=== PATIENT | female | born 1960 | race Caucasian/White ===

== ENCOUNTER 2018-07-26 14:25 | Observation (INO) ==
[2018-07-26] MEDS ORDERED: Bisacodyl 10 MG Supp RECTAL PRN (17:32)
[2018-07-26] MEDS ORDERED: Acetaminophen 325 MG Tablet PO PRN (17:32)
[2018-07-26] MEDS: Senna/Docusate Sodium 8.6/50 MG Tablet PO SCH (23:56)
[2018-07-27] MEDS ORDERED: Aluminum/Magnesium/Simethacone Susp 30 ML UDC PO ONE (00:03)
[2018-07-27] MEDS: Senna/Docusate Sodium 8.6/50 MG Tablet PO SCH (09:17)
--- NOTE | 2018-07-27 09:28 | P.HPIM ---
Addendum entered and electronically signed by Janet Desai 07/27/18 13:54: Patient underwent cardiac myocardial perfusion scan, images reviewed report showing adequate EF with no ischemia. Patient symptoms have completely resolved as well as her shortness of breath. She is comfortable on room air. Chest pain has resolved. Will discharge home to follow-up with her primary doctor. All questions answered. Rx is written. Diet as tolerated. Activity as tolerated. Follow-up with PCP. Original Note: History of Present Illness Primary Care Physician: UNKNOWN Chief Complaint: Chest pain/resp complaints History of Present Illness: This is a 58-year-old female patient with a known medical history of COPD and asthma who presented to the ED with complaints of shortness of breath as well as chest pain. Patient states that she arrived to the ER due to shortness of breath feeling like she may have an asthma attack coming on and at that time she also developed some heavy chest pain on her left- sided chest. She states that the chest pain was heavy in nature, and also alternating between stabbing sensations, she admits to shortness of breath, denies any associated nausea, vomiting she states that the pain lasted roughly 3 hours and denies any known aggravating or alleviating factors. She states that she is never had this type of chest pain in the past. Patient does states she has chronic asthma and states that over the past 30 years she is been very controlled although required one hospitalization last year in November. In the ED she required IV steroids and duo nebs which have improved her symptoms significantly. Denies any fevers, chills, headache, abdominal pain, nausea, vomiting, diarrhea or dysuria at home. She does use a nebulizer at home without relief of her symptoms. Patient does not take any medications at home, states she stopped taking them in June 2017 due to feeling improved and thinks she does not need them anymore. 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 Family history significant for [place] on her father' s side at the age of 64. Denies any tobacco or alcohol use. Patient does state that she does not own at home and lives in her car. Requesting case management assistance with any outpatient needs. Review of Systems Review of Systems: all other systems reviewed are negative [facility] Medical History Medical History Asthma (Acute) Hx of hysterectomy (Acute) Surgical History Surgical History History of total right knee replacement (Acute) Hx of cholecystectomy (Acute) Hx of shoulder surgery (Acute) Hx of tonsillectomy (Acute) Family History Family History Other Cardiovascular disease Social History Social History Substance History: No History of Abuse Second Hand Smoke Exposure: No Smoking Status: Never smoker How Often Do You Have a Drink Containing Alcohol: Never Immunization History Hx Influenza Vaccine This Season: No Medications and Allergies Allergies Allergy/AdvReac Type Severity Reaction Status Date / Time narcotics Allergy Nausea/Vomi Uncoded 07/26/18 14:42 ting Active Medications: Active Medications Acetaminophen (Tylenol) 650 mg PO Q4H PRN PRN Reason: Temp > 100.4 Al Hydroxide/Mg Hydroxide (Milk Of Magnesia Liq) 30 ml PO Q12H PRN PRN Reason: Mild Constipation Bisacodyl (Dulcolax Supp) 10 mg RECTAL DAILY PRN PRN Reason: SEVERE CONSITIPATION Lactulose (Lactulose Liq) 30 ml PO DAILY PRN PRN Reason: SEVERE CONSITIPATION Nitroglycerin (Nitrostat Sl) 0.4 mg SL Q5M PRN PRN Reason: CHEST PAIN Last Admin: 07/27/18 00:12 Dose: 0.4 mg Ondansetron HCl (Zofran Inj) 4 mg IV.PUSH Q6H PRN PRN Reason: NAUSEA OR VOMITING Senna/Docusate Sodium (Sigrid-Colace) 1 tab PO BID [facility] Last Admin: 07/27/18 09:17 Dose: Not Given Sennosides (Senokot) 17.2 mg PO Q12H PRN PRN Reason: Moderate Constipation Sodium Chloride (Ns Flush) 2 ml IV.FLUSH BID [facility] Last Admin: 07/27/18 09:16 Dose: 2 ml Sodium Chloride (Ns Flush) 2 ml IV.FLUSH PRN PRN PRN Reason: FLUSH AFTER USING IV ACCESS Physical Exam Vital signs: Vital Signs 07/27/18 00:00 07/27/18 04:00 Temperature 98.0 F 97.8 F Pulse Rate 86 77 Respiratory Rate 18 18 Blood Pressure 134/82 119/58 L Pulse Oximetry 94 L 96 Intake & Output 07/26/18 07/27/1819 18:59 06:59 18:59 Weight 71.8 kg Other: # Voids 3 Narrative: GENERAL: Well-developed, well-nourished patient in NAD. SKIN: Warm and dry. No rash. HEAD: Normocephalic. Atraumatic. EYES: Pupils equal and round. No scleral icterus. No injection or drainage. ENT: No nasal bleeding or discharge. Mucous membranes pink and moist. NECK: Supple. Trachea midline. CARDIOVASCULAR: Regular rate and rhythm. S1, S2 noted. No murmur appreciated. No reproducible chest pain. RESPIRATORY: No accessory muscle use. Clear to auscultation. Breath sounds equal bilaterally. GASTROINTESTINAL: Abdomen soft, non-tender, nondistended. Normoactive bowel sounds x4. MUSCULOSKELETAL: No obvious deformities. Extremities without clubbing, cyanosis , or edema. NEUROLOGICAL: Awake and alert. No obvious cranial nerve deficits. Motor grossly within normal limits. 5/5 muscle strength in bilateral upper and lower extremities. Normal speech. PSYCHIATRIC: Appropriate mood and affect; insight and judgment normal. Caprini VTE Risk Assessment Caprini VTE Risk Assessment: Moderate/High Risk (score >= 2) Caprini Risk Assessment Model: Point Value = 1 Point Value = 2 Point Value = 3 Point Value = 5 Age 41-60 Minor surgery BMI > 25 kg/m2 Swollen legs Varicose veins or History of unexplained or recurrent spontaneous Oral contraceptives or hormone replacement Sepsis (< 1 month) Serious lung disease, including pneumonia (< 1 month) Abnormal pulmonary function Acute myocardial infarction Congestive heart failure (< 1 month) History of inflammatory bowel disease Medical patient at bed rest Age 61-74 Arthroscopic surgery Major open surgery (> 45 min) Laparoscopic surgery (> 45 min) Malignancy Confined to bed (> 72 hours) Immobilizing plaster cast Central venous access Age >= 75 History of VTE Family history of VTE Factor V Leiden Prothrombin [id number] Lupus anticoagulant Anticardiolipin antibodies Elevated serum homocysteine Heparin-induced thrombocytopenia Other congenital or acquired thrombophilia Stroke (< 1 month) Elective arthroplasty Hip, pelvis, or leg fracture Acute spinal cord injury (< 1 month) Prophylaxis Regimen: Total Risk Factor Score Risk Level Prophylaxis Regimen 0-1 Low Early ambulation 2 Moderate Order ONE of the following: *Sequential Compression Device (SCD) *Heparin 5000 units SQ BID 3-4 Higher Order ONE of the following medications: *Heparin 5000 units SQ TID *Enoxaparin/Lovenox 40 mg SQ daily (WT < 150 kg, CrCl > 30 mL/min) *Enoxaparin/Lovenox 30 mg SQ daily (WT < 150 kg, CrCl > 10-29 mL/min) *Enoxaparin/Lovenox 30 mg SQ BID (WT < 150 kg, CrCl > 30 mL/min) AND/OR *Sequential Compression Device (SCD) 5 or more Highest Order ONE of the following medications: *Heparin 5000 units SQ TID (Preferred with Epidurals) *Enoxaparin/Lovenox 40 mg SQ daily (WT < 150 kg, CrCl > 30 mL/min) *Enoxaparin/Lovenox 30 mg SQ daily (WT < 150 kg, CrCl > 10-29 mL/min) *Enoxaparin/Lovenox 30 mg SQ BID (WT < 150 kg, CrCl > 30 mL/min) AND *Sequential Compression Device (SCD) Assessment and Plan Plan This is a 58-year-old female patient with a known medical history of COPD and asthma who presented to the ED with complaints of chest pain and shortness of breath. Chest pain, atypical -Patient has been admitted to the chest pain center for observation. Serial EKGs and serial troponins have been ordered for ruling out ACS purposes. Troponin is flat. EKG reviewed and negative without any ST changes. -Continued on cardiac telemetry overnight, no arrhythmias were noted. -CBC and BMP reviewed, essentially unremarkable. -Chest x-ray reviewed showing no acute cardiopulmonary disease. -BNP was 20. -UA is negative. -Chest pain has resolved with use of nitroglycerin. Patient will undergo a cardiac myocardial perfusion scan to further rule out any ischemia. -Patient is stable at this time and agreeable to plan. -Further hospitalization and treatment plan will depend on nuclear imaging results. History of asthma, possible exacerbation -Patient presented with some shortness of breath required IV steroids and duo nebs in the ED. -At the time of assessment patient symptoms have completely resolved. -Patient states she has enough medications for nebulizer at home. -Will encourage follow-up. DVT prophylaxis: SCDs. Ambulation. The exam, history, and the medical decision-making described in the above note were completed with the assistance of the mid-level provider. I reviewed and agree with the findings presented. I attest that I had a [id number] encounter with the patient on the same day, and personally performed and documented my assessment and findings in the medical record. Presented with a typical chest pain currently pain-free Vital signs stable Clear to auscultation regular rate rhythm no chest wall tenderness She ruled out for [place] but does have risk factors for CAD agree with stress test H&P: Quality VTE Deep Vein Thrombosis/Pulmonary Embolism Present on Admission: No
[2018-07-27] MEDS ORDERED: Regadenoson Inj 0.4 MG/5 ML Syringe IV.PUSH ONE (09:46)
--- NOTE | 2018-07-27 12:04 | ECG ---
Date Performed: 07/26/2018 Time Performed: 20:08:07 PTAGE: 58 years EKG: Sinus rhythm BORDERLINE LEFT AXIS DEVIATION LOW QRS VOLTAGE IN PRECORDIAL LEADS POSSIBLE RIGHT VENTRICULAR CONDUC TION DELAY VOLTAGE CRITERIA FOR LVH ABNORMAL ECG Since the PREVIOUS TRACING , no significant change noted PREVIOUS TRACING DOCTOR: Ameya Griffith Interpretating Date/Time 07/27/2018 12:00:32
[2018-07-27] MEDS ORDERED: Acetaminophen 325 MG Tablet PO PRN (13:17)
--- NOTE | 2018-07-27 13:43 | NM ---
EXAM DATE: 07/27/2018 1:38 PM EST AGE/SEX: 58 years / Female INDICATIONS:Angina. . CLINICAL DATA: This is the patient's initial encounter. Patient reports that signs and symptoms have been present for 1 day and indicates a pain score of 5/10. MEDICAL/SURGICAL HISTORY: Asthma. Chronic obstructive pulmonary disease. Hysterectomy. Cholec ystectomy. Tonsillectomy. COMPARISON: No prior exams available for comparison. DOSE: 8.5 mCi Tc 99m Myoview at rest 26.7 mCi [id number] at stress 0.4 mg Lexiscan STRESS SYMPTOMS: Chest burning, dyspnea and headache. EJECTION FRACTION: 67 % TECHNIQUE: The patient underwent pharmacologic stress with infusion of prescribed dose. Continuous ECG tracing was monitored during stress. Gated SPECT imaging was performed after stress and conventi onal SPECT imaging was performed at rest. The examination was performed on a SPECT/CT scanner, both attenuation and non-corrected datasets were reviewed. FINDINGS: Distribution: The maximum perfused segment at stress is in the anterolateral wall. Perfusion Study: The pattern of perfusion at stress is within normal limits. Gated Study: There are intact wall motion and wall thickening without hypokinetic or dyskinetic segm ents. The ejection fraction is calculated at 67%. RISK CATEGORY: Low (<1% Annual Mortality Rate) CONCLUSION: Negative examination. Electronically signed by: Jong Ruiz MD Board Certified Radiologist 07/27/2018 1:41 PM EST
--- NOTE | 2018-07-28 10:35 | TR ---
Date Performed: 07/27/2018 Time Performed: 12:35:36 DOCTOR: Bubba Reyes DRUG LIST: CLINICAL HISTORY: REASON FOR TEST: Chest pain REASON FOR ENDING: OBSERVATION: CONCLUSION: Lexiscan stress test was performed under standard four minute protocol. Radionuclide was injected one minute prior to ending the test. No electrocardiographic abormalities were present to suggest ischemia. Nuclear imaging and interpretation are pending. COMMENTS:
== END 2018-07-27 21:04 | disposition home or self-care (01) ==
LOC: PH3 23:05 → PHEDDLT 23:05
PROVIDERS: ADMIT Internal Medicine; ATTEND Internal Medicine
DX: Z90.710 Acquired absence of both cervix and uterus; Z82.49 Family history of ischemic heart disease and other diseases of the circulatory system; R94.31 Abnormal electrocardiogram [ECG] [EKG]; J45.909 Unspecified asthma, uncomplicated; R07.89 Other chest pain; Z96.651 Presence of right artificial knee joint; J44.9 Chronic obstructive pulmonary disease, unspecified; Z90.49 Acquired absence of other specified parts of digestive tract
CPT/HCPCS: 71010; 71045; 78452; 80053; 81001; 82550; 82552; 83520; 83690; 83880; 84484; 85025; 85379; 85610; 85730; 90774; 90775; 90784; 93005; 93017; 94640; 94664; 94665; 96374; 96375; 99285; A9502; C8952; G0378; J1885; J2785; J2930; Q9969